=== PATIENT | male | born 1980 | race Caucasian/White ===

== ENCOUNTER 2016-12-01 14:22 | Emergency (ER) | payer SELFPAY ==
[2016-12-01 17:58] LABS: Free T3 3.1 pg/mL (1.71-3.71)
== END 2016-12-01 18:22 | disposition home or self-care (01) ==
LOC: ERS 14:22
DX: E04.9 Nontoxic goiter, unspecified (principal); Z79.899 Other long term (current) drug therapy
CPT/HCPCS: 36415; 84439; 84442; 84443; 84481; 99283